=== PATIENT | male | born 1945 | race Caucasian/White ===

== ENCOUNTER 2019-11-22 17:28 | Emergency (ER) | payer MEDICARE, OTHER ==
[~2019-11-22] VITALS: Ht 167.6 cm; Wt 70.8 kg
--- NOTE | 2019-11-22 17:57 | NUR ---
Wesly george in ED - 11/22/19 at 1857 by YANIQUE Moderate sedation: start time: 1731 End time: 1750 The patient is alert and awake x 4 at 1750 PM VSS
[2019-11-22] MEDS ORDERED: TDAP [DIPH/PERTUSSIS/TET] 0.5 ML VIAL IM ONE ×2 (18:00→18:11)
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
[2019-11-22 19:40] VITALS: BP 135/81
--- NOTE | 2019-11-22 19:41 | NUR ---
Patient discharged to home in stable condition. Written and verbal after care instructions given. Patient verbalizes understanding of instruction.
[2019-11-22] MEDS ORDERED: LIDOCAINE 1%-EPI 1:100,000 20 ML VIAL ONE (20:50)
--- NOTE | 2019-11-22 20:50 | NUR ---
PT WAS IN WAITING ROOM WAITING FOR RIDE, WOUND BEGAN TO SATURATE DRESSING. PT BROUGHT BACK TO ER BED 1. BO RESIDENT CARE SPEC AT BEDSIDE. SUTURE SET UP AT BEDSIDE.
[2019-11-22] MEDS ORDERED: LIDOCAINE 1%-EPI 1:100,000 50 ML VIAL IJ ONE (21:00)
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
== END 2019-11-22 19:41 | disposition home or self-care (01) ==
LOC: ER 17:34
DX: S51.811A Laceration without foreign body of right forearm, initial encounter (principal); S00.81XA Abrasion of other part of head, initial encounter; I10 Essential (primary) hypertension; I48.91 Unspecified atrial fibrillation; Y08.89XA Assault by other specified means, initial encounter; Y93.89 Activity, other specified; Y92.89 Other specified places as the place of occurrence of the external cause; Y99.8 Other external cause status
CPT/HCPCS: 12002; 70450; 90471; 90715; 99284; J3490